=== PATIENT | male | born 1970 | race Native Hawaiian/Other Pacific Islander ===

== ENCOUNTER 2019-02-19 08:29 | Day surgery (SDC) | payer BC ==
[2019-02-06 11:14] VITALS: BMI 26.4
[2019-02-19] MEDS ORDERED: ceFAZolin 1 gm in NS 2 GM/200 ML BAG IVPB ONE (09:04)
[2019-02-19] MEDS ORDERED: Bupivacaine-Epi 0.5%-1:200,000 PF Inj ONE (09:04)
[2019-02-19] MEDS ORDERED: Lidocaine/Epinephrine 1% 1:100000 10 ML IJ ONE ×2 (11:04→11:11)
[2019-02-19] MEDS ORDERED: Midazolam 2 MG/2 ML VIAL ONE (11:15)
[2019-02-19] MEDS ORDERED: Propofol 10 mg/ml Inj (20 ML) ONE (11:17)
[2019-02-19] MEDS ORDERED: oxyCODONE 5 mg Immediate Release Tab PO ONE (11:39)
--- NOTE | 2019-02-19 11:45 | PCM.SURG1 ---
Surgeon's Initial Post Op Note - Surgeon's Notes Surgeon: Dr. Hewitt Rebeamer: PGY2 Type of Anesthesia: IV Sedation, Local Pre-Operative Diagnosis: Right Thigh mass Operative Findings: Single mass, resembles lipoma Post-Operative Diagnosis: Lipoma of Right Hip Operation Performed: Excision of Right Hip Lipoma Specimen/Specimens Removed: 1. Right Hip Mass Estimated Blood Loss: EBL {In ML}: 3 Post-Op Condition: Good Date of Surgery/Procedure: 02/19/19 Time of Surgery/Procedure: 11:44 (Dictation#: [id number])
[2019-02-19 11:54] VITALS: O2SAT 97
[2019-02-19 12:35] VITALS: RESP 18
[2019-02-19 12:54] VITALS: BP 127/83; PULSE 96; TEMP 97.3
--- NOTE | 2019-02-19 22:52 | OP ---
PROCEDURE DATE: 02/19/2019 PREOPERATIVE DIAGNOSIS: Right hip mass. POSTOPERATIVE DIAGNOSIS: Right hip lipoma. PROCEDURE: Excision of right hip lipoma. SURGEON: Noah Hewitt MD CHIEF CLINICAL DIETITIAN: Isaak Enriquez, PGY-2. TYPE OF ANESTHESIA: Local plus IV sedation. ESTIMATED BLOOD LOSS: 2 mL. SPECIMEN: Right hip mass. INDICATION FOR SURGERY: This is a 48-year-old male who first noticed a mass on his right hip about an year and a half ago, noticed that was progressively growing in size. The patient indicated pain and discomfort at the site. The patient was then discussed to go to the operating room for excision of right hip mass. Risks and benefits were explained to the patient and the patient subsequently agreed. DESCRIPTION OF PROCEDURE: The patient was brought in to the operating suite, placed in supine position with a bump on the right side of his right hip. The patient was connected to the EKG and blood pressure, pulse oximeter. Subsequently underwent IV sedation. A time-out was taken at this time verifying correct patient, procedure, and laterality. Local anesthetic of 2% lidocaine with epinephrine was used to inject in a field block manner directly over the palpable mass. A #15 blade was used to make an incision through the skin. A combination of sharp and blunt dissection using Metzenbaum was used to get down to the mass. The mass was identified, elevated out of the skin and was able to be removed safely. Minimal blood loss at this time. Attention was taken back and hemostasis was achieved using electrocautery. The incision was then reapproximated with 4-0 Vicryl in a deep dermal fashion and then run with 4-0 Vicryl in a subcuticular manner. Dermabond was placed on top as sterile dressing. The patient was then awakened and taken to the postanesthesia care unit in a stable condition. All counts were correct at the end of the case. Dr. Hewitt was present and participated in all aspects of this case. Isaak Enriquez, DO Noah Hewitt MD [facility] # [id number]
== END 2019-02-19 12:55 | disposition home or self-care (01) ==
LOC: C.SDS 08:29
PROVIDERS: ATTEND Surgery
DX: D17.1 Benign lipomatous neoplasm of skin and subcutaneous tissue of trunk (principal)
CPT/HCPCS: 11404; 12032; 88307; J0690; J2250; J2704; J3010